=== PATIENT | male | born 1955 | race Hispanic/Latino ===

== ENCOUNTER 2020-04-18 20:00 | Inpatient (IN) | payer OTHER ==
[~2020-04-18] VITALS: Ht 175.3 cm; Wt 146.4 kg
[2020-04-18 20:41] LABS: INR 1.5 (0.85-1.15); PARTIAL THROMBOPLASTIN TIME 32.6 SEC (26.3-35.5); PROTHROMBIN TIME 15.9 SEC (9.6-11.6)
[2020-04-18] MEDS ORDERED: DEXAMETHASONE SOD PHOSPHATE 10MG/ML 1ML VIAL ONE (20:41)
[2020-04-18] MEDS ORDERED: AZITHROMYCIN 500MG+NS 250ML 250 ML IV ONE (20:41)
[2020-04-18] MEDS ORDERED: CEFTRIAXONE SODIUM 1 GM ONE (20:42)
[2020-04-18 20:50] LABS: CREATININE 1.6 mg/dL (0.5-1.5); POTASSIUM 4.6 mmol/L (3.5-5.1)
[2020-04-18 20:54] LABS: ABG BASE EXCESS -8.9 mmol/L (-2.0-3.0); ABG HCO3 19.3 mmol/L (21.0-28.0); ABG OXYGEN SATURATION 95.2 % (95.0-99.0); ABG PCO2 50 mmHg (35-48)
[2020-04-18 21:03] LABS: ALBUMIN 2.3 g/dL (3.5-5.0); BILIRUBIN,TOTAL 0.6 mg/dL (0.2-1.0); TOTAL PROTEIN, SERUM 8.6 g/dL (6.0-8.3); TROPONIN I 0.14 ng/mL (0.00-0.06)
[2020-04-18 21:08] LABS: APPEARANCE,URINE Cloudy (CLEAR); BILIRUBIN,URINE Negative (NEGATIVE); COLOR,URINE Dark Yellow (YELLOW); GLUCOSE, URINE (UA) Negative (NEGATIVE); KETONES,URINE Negative (NEGATIVE); LEUKOCYTE ESTERASE ,URINE Trace (NEGATIVE); NITRATE,URINE Negative (NEGATIVE); OCCULT BLOOD,URINE Trace (NEGATIVE); PROTEIN,URINE 300 mg/dL (NEGATIVE)
[2020-04-18 21:11] LABS: CRP QUANTITATIVE 307.1 mg/L (0.00-9.0); MAGNESIUM 2.3 mg/dL (1.80-2.40)
[2020-04-18 21:13] LABS: BASOPHILS % (AUTO) 0.1 % (0.0-5.0); EOSINOPHILS % (AUTO) 0.1 % (0.0-8.0); HEMATOCRIT 42.3 % (42-54); LYMPHOCYTES % (AUTO) 7.6 % (21.0-51.0); MEAN CORPUSCULAR HEMOGLOBIN 30.5 pg (27.0-33.0); MEAN CORPUSCULAR HGB CONC 33.6 g/dL (32.0-36.0); MONOCYTES % (AUTO) 6.8 % (3.0-13.0); NEUTROPHILS % (AUTO) 73.3 % (40.0-77.0); NUCLEATED RED BLOOD CELLS 1.9 % (0.0-0.19); PLATELET COUNT (AUTO) 480 K/uL (130-400); RED BLOOD CELL COUNT(AUTO) 4.65 MIL/uL (4.50-6.20)
[2020-04-18] MEDS ORDERED: PROPOFOL 1000 MG/100 ML 100 ML IV ONE (21:19)
[2020-04-18] MEDS ORDERED: ENOXAPARIN SODIUM 30 MG/0.3 ML SQ ONE (21:25)
[2020-04-18] MEDS ORDERED: ENOXAPARIN SODIUM 120 MG/0.8ML SQ ONE (21:25)
[2020-04-18 21:34] LABS: RBC,URINE None Seen /HPF (0-1)
[2020-04-18 21:35] LABS: AMORPHOUS SEDIMENT,UR Few /LPF (None Seen); BACTERIA,URINE Few /HPF (None Seen); SQUAMOUS EPITHELIAL CELL,UR None Seen /HPF (0-2)
[2020-04-18] MEDS ORDERED: LACTULOSE 20 GM/30 ML UDCUP PO PRN (21:45)
[2020-04-18] MEDS ORDERED: ONDANSETRON HCL 4 MG/2 ML VIAL IV PRN (21:45)
[2020-04-18] MEDS: CEFTRIAXONE SODIUM 1 GM IV SCH (21:45)
[2020-04-18] MEDS ORDERED: SODIUM BICARB 8.4% IVP SCH (21:45)
[2020-04-18] MEDS: AZITHROMYCIN 500MG+NS 250ML 250 ML IV SCH (21:45)
[2020-04-18] MEDS ORDERED: SYRING IVP SCH (21:45)
[2020-04-18] MEDS ORDERED: SODIUM CHLORIDE 0.9% IVP SCH (21:45)
[2020-04-18] MEDS ORDERED: METHYLPREDNISOLONE SOD SUCC 40MG/ML 1ML IVP SCH (21:45)
[2020-04-18] MEDS ORDERED: ACETAMINOPHEN 325 MG TAB PO PRN ×2 (21:45)
[2020-04-18] MEDS: RENAL DOSE IV SCH (21:45)
[2020-04-18] MEDS ORDERED: PHARMACY COMMUNICATION MISC SCH (22:00)
[2020-04-18 22:21] LABS: CHOLESTEROL 199 mg/dL (<200); LDL DIRECT 106 mg/dL (0-99); TRIGLYCERIDES 187 mg/dL (30-200)
[2020-04-18 22:34] LABS: HDL CHOLESTEROL 54 mg/dL (29-71)
[2020-04-19] VITALS (63 sets, daily range): BP systolic 74–143; BP diastolic 28–72
[2020-04-19] MEDS ORDERED: SODIUM CHLORIDE 0.9% 0 ML IV ONE (00:15)
[2020-04-19] MEDS ORDERED: FENTANYL 2500MCG+NS 250ML 250 ML IV ONE (00:16)
[2020-04-19 00:37] LABS: ABG BASE EXCESS 0.4 mmol/L (-2.0-3.0); ABG HCO3 25.4 mmol/L (21.0-28.0); ABG PCO2 43 mmHg (35-48)
[2020-04-19] MEDS ORDERED: NOREPINEPHRINE 4MG/NS 250ML 250 ML IV ONE ×2 (02:16→12:07)
[2020-04-19] MEDS: RENAL DOSE IV SCH ×4 (03:45→21:45)
[2020-04-19] MEDS ORDERED: METHYLPREDNISOLONE SOD SUCC 40MG/ML 1ML ONE (04:42)
[2020-04-19 04:48] LABS: BILIRUBIN,TOTAL 0.4 mg/dL (0.2-1.0); CREATININE 1.7 mg/dL (0.5-1.5); POTASSIUM 4.9 mmol/L (3.5-5.1); TOTAL PROTEIN, SERUM 7.6 g/dL (6.0-8.3)
[2020-04-19 05:05] LABS: CRP QUANTITATIVE 243.1 mg/L (0.00-9.0)
[2020-04-19 06:00] LABS: BASOPHILS % (AUTO) 0.2 % (0.0-5.0); HEMATOCRIT 38.8 % (42-54); LYMPHOCYTES % (AUTO) 4.9 % (21.0-51.0); MEAN CORPUSCULAR VOLUME 90.9 fL (79-99); MONOCYTES % (AUTO) 3.9 % (3.0-13.0); NEUTROPHILS % (AUTO) 79.3 % (40.0-77.0); NUCLEATED RED BLOOD CELLS 1.6 % (0.0-0.19); PLATELET COUNT (AUTO) 415 K/uL (130-400); RED BLOOD CELL COUNT(AUTO) 4.27 MIL/uL (4.50-6.20); RED CELL DISTRIBUTION WIDTH 14.9 % (11.0-15.5); WHITE BLOOD COUNT (AUTO) 17.9 K/uL (4.8-10.8)
[2020-04-19] MEDS: INSULIN HUMULIN R 100 UNIT/ML 3ML SQ SCH ×4 (06:00→18:00)
[2020-04-19] MEDS ORDERED: REMDESIVIR (EUA) 520 200 MG in SODIUM CHLORIDE 0.9% 250 ML IV SCH (07:00)
[2020-04-19] MEDS ORDERED: COMPOUND IV REFRIGERATED 1 EACH IVSOLN MISC PRN (07:00)
[2020-04-19] MEDS ORDERED: ENOXAPARIN SODIUM 40 MG/0.4 ML SYRINGE SQ SCH ×2 (09:00)
[2020-04-19] MEDS ORDERED: ENOXAPARIN SODIUM 60 MG/0.6 ML SQ SCH ×2 (09:00→21:00)
[2020-04-19] MEDS ORDERED: FUROSEMIDE 10 MG/ML 4ML VIAL IV SCH (09:00)
[2020-04-19] MEDS ORDERED: ALLO300T2 PO (11:46)
[2020-04-19] MEDS ORDERED: BUPR200T34 PO (11:46)
[2020-04-19] MEDS ORDERED: MYCO500V2 IV (11:46)
[2020-04-19] MEDS ORDERED: LOSA50TA64 PO (11:46)
[2020-04-19] MEDS ORDERED: HYDR-4068 PO (11:46)
[2020-04-19] MEDS ORDERED: METO100T14 PO (11:46)
[2020-04-19] MEDS ORDERED: FURO40SO4 PO (11:46)
[2020-04-19] MEDS ORDERED: HYDR200T4 PO (11:46)
[2020-04-19] MEDS: PROPOFOL 1000 MG/100 ML 100 ML IV SCH ×2 (12:46→19:45)
[2020-04-19] MEDS: FUROSEMIDE 10 MG/ML 2ML VIAL IVP SCH ×2 (14:00→22:34)
[2020-04-19] MEDS ORDERED: NOREPINEPHRINE 4MG/NS 250ML 250 ML IV SCH (14:15)
[2020-04-19] MEDS: MIDAZOLAM 100MG-0.9% NS 100ML 100 ML IV SCH (16:43)
[2020-04-19] MEDS: ENOXAPARIN SODIUM 100 MG/1 ML SQ SCH (21:00)
[2020-04-19] MEDS ORDERED: ENOXAPARIN SODIUM 100 MG/1 ML SQ SCH (21:00)
[2020-04-19] MEDS: AZITHROMYCIN 500MG+NS 250ML 250 ML IV SCH (22:34)
[2020-04-19] MEDS: CEFTRIAXONE SODIUM 1 GM IV SCH (22:34)
[2020-04-19] MEDS: DEXAMETHASONE SOD PHOSPHATE 4 MG/ML 1ML VIAL IVP SCH (22:34)
[2020-04-20] VITALS (50 sets, daily range): BP systolic 92–128; BP diastolic 24–69
[2020-04-20] MEDS: MIDAZOLAM 100MG-0.9% NS 100ML 100 ML IV SCH ×2 (02:16→14:04)
[2020-04-20] MEDS: PROPOFOL 1000 MG/100 ML 100 ML IV SCH ×3 (02:16→13:08)
[2020-04-20 03:27] LABS: ABG HCO3 22.2 mmol/L (21.0-28.0); ABG OXYGEN SATURATION 96.7 % (95.0-99.0); ABG PCO2 44 mmHg (35-48)
[2020-04-20 04:13] LABS: BASOPHILS % (AUTO) 0.1 % (0.0-5.0); HEMATOCRIT 41.1 % (42-54); LYMPHOCYTES % (AUTO) 4.1 % (21.0-51.0); MEAN CORPUSCULAR HEMOGLOBIN 29.8 pg (27.0-33.0); MEAN CORPUSCULAR HGB CONC 32.1 g/dL (32.0-36.0); MEAN CORPUSCULAR VOLUME 92.8 fL (79-99); MONOCYTES % (AUTO) 7.4 % (3.0-13.0); NEUTROPHILS % (AUTO) 77.1 % (40.0-77.0); NUCLEATED RED BLOOD CELLS 2.2 % (0.0-0.19); PLATELET COUNT (AUTO) 465 K/uL (130-400); RED BLOOD CELL COUNT(AUTO) 4.43 MIL/uL (4.50-6.20); RED CELL DISTRIBUTION WIDTH 15.1 % (11.0-15.5); WHITE BLOOD COUNT (AUTO) 27.1 K/uL (4.8-10.8)
[2020-04-20 04:56] LABS: BILIRUBIN,TOTAL 0.5 mg/dL (0.2-1.0); CREATININE 1.7 mg/dL (0.5-1.5); CRP QUANTITATIVE 136.7 mg/L (0.00-9.0); POTASSIUM 4.7 mmol/L (3.5-5.1); TOTAL PROTEIN, SERUM 7.6 g/dL (6.0-8.3)
[2020-04-20] MEDS: FUROSEMIDE 10 MG/ML 2ML VIAL IVP SCH ×3 (06:00→20:21)
[2020-04-20] MEDS: INSULIN HUMULIN R 100 UNIT/ML 3ML SQ SCH ×4 (06:00→15:21)
[2020-04-20] MEDS: PHARMACY COMMUNICATION MISC SCH (06:00)
[2020-04-20] MEDS: LOSARTAN 50 MG TABLET PO SCH ×2 (07:44→20:37)
[2020-04-20] MEDS: METOPROLOL TARTRATE 50 MG TAB PO SCH (07:45)
[2020-04-20] MEDS: RENAL DOSE IV SCH ×4 (07:46→20:37)
[2020-04-20] MEDS: PANTOPRAZOLE 40 MG/VIAL IVP SCH (08:46)
[2020-04-20] MEDS: ENOXAPARIN SODIUM 100 MG/1 ML SQ SCH ×2 (08:47→20:21)
[2020-04-20] MEDS: REMDESIVIR (EUA) 520 100 MG in SODIUM CHLORIDE 0.9% 250 ML IV SCH (08:47)
[2020-04-20] MEDS: DEXAMETHASONE SOD PHOSPHATE 4 MG/ML 1ML VIAL IVP SCH ×2 (08:53→20:42)
[2020-04-20] MEDS ORDERED: FUROSEMIDE 10 MG/ML 4ML VIAL IVP SCH (09:45)
[2020-04-20] MEDS: FENTANYL 2500MCG+NS 250ML 250 ML IV SCH (15:57)
[2020-04-20] MEDS: CEFTRIAXONE SODIUM 1 GM IV SCH (20:21)
[2020-04-20] MEDS: AZITHROMYCIN 500MG+NS 250ML 250 ML IV SCH (20:21)
[2020-04-20] MEDS ORDERED: DEXAMETHASONE SOD PHOSPHATE 4 MG/ML 1ML VIAL ONE ×2 (20:39→20:43)
[2020-04-21] VITALS (49 sets, daily range): BP systolic 98–131; BP diastolic 37–52
[2020-04-21] MEDS: RENAL DOSE IV SCH ×4 (03:45→21:31)
[2020-04-21 04:23] LABS: ABG BASE EXCESS -2.2 mmol/L (-2.0-3.0); ABG HCO3 23.3 mmol/L (21.0-28.0); ABG OXYGEN SATURATION 96.8 % (95.0-99.0); ABG PCO2 43 mmHg (35-48)
[2020-04-21 04:44] LABS: BASOPHILS % (AUTO) 0.2 % (0.0-5.0); HEMATOCRIT 41.7 % (42-54); LYMPHOCYTES % (AUTO) 2.7 % (21.0-51.0); MEAN CORPUSCULAR HEMOGLOBIN 29.7 pg (27.0-33.0); MEAN CORPUSCULAR HGB CONC 31.4 g/dL (32.0-36.0); MEAN CORPUSCULAR VOLUME 94.6 fL (79-99); MONOCYTES % (AUTO) 7.1 % (3.0-13.0); NEUTROPHILS % (AUTO) 78.7 % (40.0-77.0); NUCLEATED RED BLOOD CELLS 2.4 % (0.0-0.19); PLATELET COUNT (AUTO) 440 K/uL (130-400); RED BLOOD CELL COUNT(AUTO) 4.41 MIL/uL (4.50-6.20); RED CELL DISTRIBUTION WIDTH 15.4 % (11.0-15.5)
[2020-04-21] MEDS: DEXAMETHASONE SOD PHOSPHATE 4 MG/ML 1ML VIAL IVP SCH ×3 (04:58→21:30)
[2020-04-21] MEDS: FUROSEMIDE 10 MG/ML 2ML VIAL IVP SCH ×3 (04:59→21:30)
[2020-04-21 05:00] LABS: ALBUMIN 2.2 g/dL (3.5-5.0); BILIRUBIN,TOTAL 0.5 mg/dL (0.2-1.0); CREATININE 1.9 mg/dL (0.5-1.5); CRP QUANTITATIVE 64.2 mg/L (0.00-9.0); POTASSIUM 4.3 mmol/L (3.5-5.1); TOTAL PROTEIN, SERUM 7.2 g/dL (6.0-8.3)
[2020-04-21] MEDS: INSULIN HUMULIN R 100 UNIT/ML 3ML SQ SCH ×4 (05:53→16:26)
[2020-04-21] MEDS: PROPOFOL 1000 MG/100 ML 100 ML IV SCH ×2 (05:54→12:32)
[2020-04-21] MEDS: PHARMACY COMMUNICATION MISC SCH (06:00)
[2020-04-21] MEDS: PANTOPRAZOLE 40 MG/VIAL IVP SCH (08:37)
[2020-04-21] MEDS: LOSARTAN 50 MG TABLET PO SCH ×2 (08:38→21:00)
[2020-04-21] MEDS: REMDESIVIR (EUA) 520 100 MG in SODIUM CHLORIDE 0.9% 250 ML IV SCH (08:38)
[2020-04-21] MEDS: ENOXAPARIN SODIUM 100 MG/1 ML SQ SCH ×2 (08:38→21:29)
[2020-04-21] MEDS: METOPROLOL TARTRATE 50 MG TAB PO SCH (08:39)
[2020-04-21] MEDS: MIDAZOLAM 100MG-0.9% NS 100ML 100 ML IV SCH (12:32)
[2020-04-21] MEDS: CEFTRIAXONE SODIUM 1 GM IV SCH (21:29)
[2020-04-21] MEDS: AZITHROMYCIN 500MG+NS 250ML 250 ML IV SCH (21:30)
[2020-04-22] VITALS (60 sets, daily range): BP systolic 91–154; BP diastolic 34–63
[2020-04-22] MEDS: INSULIN HUMULIN R 100 UNIT/ML 3ML SQ SCH ×4 (01:19→17:29)
[2020-04-22] MEDS: RENAL DOSE IV SCH ×4 (02:01→20:49)
[2020-04-22 03:49] LABS: ABG BASE EXCESS 0.6 mmol/L (-2.0-3.0); ABG HCO3 24.7 mmol/L (21.0-28.0); ABG OXYGEN SATURATION 93.5 % (95.0-99.0); ABG PCO2 38 mmHg (35-48)
[2020-04-22] MEDS: MIDAZOLAM 100MG-0.9% NS 100ML 100 ML IV SCH (04:00)
[2020-04-22] MEDS: FENTANYL 2500MCG+NS 250ML 250 ML IV SCH (04:01)
[2020-04-22] MEDS: PROPOFOL 1000 MG/100 ML 100 ML IV SCH ×2 (04:01→09:29)
[2020-04-22 04:38] LABS: BASOPHILS % (AUTO) 0.8 % (0.0-5.0); HEMATOCRIT 39.4 % (42-54); LYMPHOCYTES % (AUTO) 2.7 % (21.0-51.0); MEAN CORPUSCULAR HEMOGLOBIN 29.5 pg (27.0-33.0); MEAN CORPUSCULAR HGB CONC 31.5 g/dL (32.0-36.0); MEAN CORPUSCULAR VOLUME 93.6 fL (79-99); MONOCYTES % (AUTO) 6.2 % (3.0-13.0); NEUTROPHILS % (AUTO) 80.5 % (40.0-77.0); NUCLEATED RED BLOOD CELLS 1.4 % (0.0-0.19); PLATELET COUNT (AUTO) 376 K/uL (130-400); RED BLOOD CELL COUNT(AUTO) 4.21 MIL/uL (4.50-6.20); WHITE BLOOD COUNT (AUTO) 23.2 K/uL (4.8-10.8)
[2020-04-22 05:02] LABS: ALBUMIN 2.1 g/dL (3.5-5.0); BILIRUBIN,TOTAL 0.5 mg/dL (0.2-1.0); CREATININE 1.9 mg/dL (0.5-1.5); CRP QUANTITATIVE 30.3 mg/L (0.00-9.0); POTASSIUM 4.1 mmol/L (3.5-5.1); TOTAL PROTEIN, SERUM 6.5 g/dL (6.0-8.3)
[2020-04-22] MEDS: DEXAMETHASONE SOD PHOSPHATE 4 MG/ML 1ML VIAL IVP SCH ×3 (05:04→20:49)
[2020-04-22] MEDS: FUROSEMIDE 10 MG/ML 2ML VIAL IVP SCH (05:04)
[2020-04-22] MEDS: PHARMACY COMMUNICATION MISC SCH (06:00)
[2020-04-22] MEDS: PANTOPRAZOLE 40 MG/VIAL IVP SCH (08:47)
[2020-04-22] MEDS: LOSARTAN 50 MG TABLET PO SCH ×2 (08:47→20:49)
[2020-04-22] MEDS: METOPROLOL TARTRATE 50 MG TAB PO SCH (08:47)
[2020-04-22] MEDS: REMDESIVIR (EUA) 520 100 MG in SODIUM CHLORIDE 0.9% 250 ML IV SCH (08:47)
[2020-04-22] MEDS: ENOXAPARIN SODIUM 100 MG/1 ML SQ SCH ×2 (08:48→20:48)
[2020-04-22] MEDS: AZITHROMYCIN 500MG+NS 250ML 250 ML IV SCH (20:48)
[2020-04-22] MEDS: CEFTRIAXONE SODIUM 1 GM IV SCH (20:49)
[2020-04-23] VITALS (66 sets, daily range): BP systolic 112–172; BP diastolic 22–82
[2020-04-23] MEDS: RENAL DOSE IV SCH ×4 (03:45→20:38)
[2020-04-23 04:22] LABS: ABG HCO3 23.2 mmol/L (21.0-28.0); ABG OXYGEN SATURATION 93.3 % (95.0-99.0); ABG PCO2 37 mmHg (35-48)
[2020-04-23 04:49] LABS: BASOPHILS % (AUTO) 0.5 % (0.0-5.0); HEMATOCRIT 39.1 % (42-54); LYMPHOCYTES % (AUTO) 2.1 % (21.0-51.0); MEAN CORPUSCULAR HEMOGLOBIN 30.1 pg (27.0-33.0); MEAN CORPUSCULAR HGB CONC 31.7 g/dL (32.0-36.0); MEAN CORPUSCULAR VOLUME 94.9 fL (79-99); MONOCYTES % (AUTO) 5.3 % (3.0-13.0); NEUTROPHILS % (AUTO) 83.9 % (40.0-77.0); NUCLEATED RED BLOOD CELLS 0.9 % (0.0-0.19); PLATELET COUNT (AUTO) 291 K/uL (130-400); RED BLOOD CELL COUNT(AUTO) 4.12 MIL/uL (4.50-6.20); WHITE BLOOD COUNT (AUTO) 19.5 K/uL (4.8-10.8)
[2020-04-23 05:02] LABS: ALBUMIN 2.1 g/dL (3.5-5.0); BILIRUBIN,DIRECT 0.1 mg/dL (0.0-0.3); BILIRUBIN,TOTAL 0.4 mg/dL (0.2-1.0); CREATININE 1.8 mg/dL (0.5-1.5); CRP QUANTITATIVE 21.2 mg/L (0.00-9.0); MAGNESIUM 2.6 mg/dL (1.80-2.40); PHOSPHORUS 4.6 mg/dL (2.5-4.9); POTASSIUM 4.3 mmol/L (3.5-5.1); TOTAL PROTEIN, SERUM 6.4 g/dL (6.0-8.3)
[2020-04-23] MEDS: PHARMACY COMMUNICATION MISC SCH (06:00)
[2020-04-23] MEDS: INSULIN HUMULIN R 100 UNIT/ML 3ML SQ SCH ×4 (06:52→18:18)
[2020-04-23] MEDS: REMDESIVIR (EUA) 520 100 MG in SODIUM CHLORIDE 0.9% 250 ML IV SCH (08:34)
[2020-04-23] MEDS: PANTOPRAZOLE 40 MG/VIAL IVP SCH (08:35)
[2020-04-23] MEDS: METOPROLOL TARTRATE 50 MG TAB PO SCH (08:54)
[2020-04-23] MEDS: ENOXAPARIN SODIUM 100 MG/1 ML SQ SCH (08:54)
[2020-04-23] MEDS: DEXMEDETOMIDINE HCL 400 MCG in SODIUM CHLORIDE 0.9% 100 ML IV SCH ×2 (09:38→16:36)
[2020-04-23] MEDS: DEXAMETHASONE SOD PHOSPHATE 4 MG/ML 1ML VIAL IVP SCH (11:00)
[2020-04-23] MEDS: LOSARTAN 50 MG TABLET PO SCH ×2 (11:00→20:37)
[2020-04-23] MEDS: DEXTROSE 5%-WATER 1,000 ML IV SCH (11:00)
[2020-04-23 14:13] LABS: BASOPHILS % (AUTO) 0.4 % (0.0-5.0); HEMATOCRIT 38.6 % (42-54); LYMPHOCYTES % (AUTO) 2.1 % (21.0-51.0); MEAN CORPUSCULAR HEMOGLOBIN 29.7 pg (27.0-33.0); MEAN CORPUSCULAR HGB CONC 31.6 g/dL (32.0-36.0); MEAN CORPUSCULAR VOLUME 93.9 fL (79-99); MONOCYTES % (AUTO) 6.4 % (3.0-13.0); NEUTROPHILS % (AUTO) 85.3 % (40.0-77.0); NUCLEATED RED BLOOD CELLS 0.6 % (0.0-0.19); PLATELET COUNT (AUTO) 256 K/uL (130-400); RED BLOOD CELL COUNT(AUTO) 4.11 MIL/uL (4.50-6.20); RED CELL DISTRIBUTION WIDTH 15.6 % (11.0-15.5); WHITE BLOOD COUNT (AUTO) 23.4 K/uL (4.8-10.8)
[2020-04-23 14:25] LABS: CREATININE 1.5 mg/dL (0.5-1.5); POTASSIUM 4.3 mmol/L (3.5-5.1)
[2020-04-23] MEDS ORDERED: PROTAMINE SULFATE 10 MG/ML 5 ML VIAL IVP SCH (15:24)
[2020-04-23 16:00] LABS: INR 1.22 (0.85-1.15); PARTIAL THROMBOPLASTIN TIME 26.8 SEC (26.3-35.5); PROTHROMBIN TIME 13.1 SEC (9.6-11.6)
[2020-04-23] MEDS ORDERED: PROPOFOL 1000 MG/100 ML IV PRN (17:00)
[2020-04-23 17:35] LABS: CREATININE 1.4 mg/dL (0.5-1.5); POTASSIUM 4.5 mmol/L (3.5-5.1)
[2020-04-23] MEDS: CEFTRIAXONE SODIUM 1 GM IV SCH (20:38)
[2020-04-23] MEDS: AZITHROMYCIN 500MG+NS 250ML 250 ML IV SCH (20:38)
[2020-04-24] VITALS (69 sets, daily range): BP systolic 99–193; BP diastolic 26–101
[2020-04-24] MEDS: RENAL DOSE IV SCH ×4 (03:45→21:09)
[2020-04-24 04:43] LABS: BASOPHILS % (AUTO) 0.2 % (0.0-5.0); HEMATOCRIT 32.2 % (42-54); LYMPHOCYTES % (AUTO) 2.1 % (21.0-51.0); MEAN CORPUSCULAR HEMOGLOBIN 29.7 pg (27.0-33.0); MEAN CORPUSCULAR HGB CONC 31.4 g/dL (32.0-36.0); MEAN CORPUSCULAR VOLUME 94.7 fL (79-99); MONOCYTES % (AUTO) 5.6 % (3.0-13.0); NEUTROPHILS % (AUTO) 86.8 % (40.0-77.0); NUCLEATED RED BLOOD CELLS 0.8 % (0.0-0.19); PLATELET COUNT (AUTO) 228 K/uL (130-400); RED CELL DISTRIBUTION WIDTH 15.3 % (11.0-15.5); WHITE BLOOD COUNT (AUTO) 22.3 K/uL (4.8-10.8)
[2020-04-24 04:55] LABS: INR 1.19 (0.85-1.15); PARTIAL THROMBOPLASTIN TIME 27.3 SEC (26.3-35.5); PROTHROMBIN TIME 12.8 SEC (9.6-11.6)
[2020-04-24 05:30] LABS: ALBUMIN 1.8 g/dL (3.5-5.0); BILIRUBIN,TOTAL 0.3 mg/dL (0.2-1.0); CREATININE 1.3 mg/dL (0.5-1.5); CRP QUANTITATIVE 13.7 mg/L (0.00-9.0); POTASSIUM 4.2 mmol/L (3.5-5.1); TOTAL PROTEIN, SERUM 5.3 g/dL (6.0-8.3)
[2020-04-24] MEDS: DEXTROSE 5%-WATER 1,000 ML IV SCH (05:45)
[2020-04-24] MEDS: PHARMACY COMMUNICATION MISC SCH (06:00)
[2020-04-24] MEDS: INSULIN HUMULIN R 100 UNIT/ML 3ML SQ SCH ×4 (07:03→18:35)
[2020-04-24] MEDS: METOPROLOL TARTRATE 50 MG TAB PO SCH (09:00)
[2020-04-24] MEDS: PANTOPRAZOLE 40 MG/VIAL IVP SCH (10:09)
[2020-04-24] MEDS: DEXAMETHASONE SOD PHOSPHATE 4 MG/ML 1ML VIAL IVP SCH (10:09)
[2020-04-24] MEDS: LOSARTAN 50 MG TABLET PO SCH ×2 (10:09→21:00)
[2020-04-24] MEDS ORDERED: POLYETHYLENE GLYCOL 3350 17 GM POWD.PACK PO PRN (11:15)
[2020-04-24] MEDS: DOCUSATE NA 100MG/10ML UDCUP GT SCH ×2 (14:00→21:08)
[2020-04-25] VITALS (68 sets, daily range): BP systolic 82–211; BP diastolic 30–125
[2020-04-25] MEDS: RENAL DOSE IV SCH ×4 (03:45→21:45)
[2020-04-25 05:02] LABS: ABG BASE EXCESS -4.2 mmol/L (-2.0-3.0); ABG HCO3 18.2 mmol/L (21.0-28.0); ABG OXYGEN SATURATION 94.8 % (95.0-99.0); ABG PCO2 27 mmHg (35-48)
[2020-04-25] MEDS: INSULIN HUMULIN R 100 UNIT/ML 3ML SQ SCH ×4 (06:17→18:00)
[2020-04-25] MEDS: DOCUSATE NA 100MG/10ML UDCUP GT SCH ×3 (06:27→22:00)
[2020-04-25 08:51] LABS: BASOPHILS % (AUTO) 0.3 % (0.0-5.0); HEMATOCRIT 32.9 % (42-54); LYMPHOCYTES % (AUTO) 1.4 % (21.0-51.0); MEAN CORPUSCULAR HGB CONC 32.5 g/dL (32.0-36.0); MEAN CORPUSCULAR VOLUME 92.2 fL (79-99); MONOCYTES % (AUTO) 5.3 % (3.0-13.0); NUCLEATED RED BLOOD CELLS 0.4 % (0.0-0.19); PLATELET COUNT (AUTO) 240 K/uL (130-400); RED BLOOD CELL COUNT(AUTO) 3.57 MIL/uL (4.50-6.20); RED CELL DISTRIBUTION WIDTH 15.8 % (11.0-15.5); WHITE BLOOD COUNT (AUTO) 29.7 K/uL (4.8-10.8)
[2020-04-25] MEDS: SENNOSIDES 8.6 MG TABLET GT SCH (09:00)
[2020-04-25] MEDS: METOPROLOL TARTRATE 50 MG TAB PO SCH (09:00)
[2020-04-25] MEDS: LOSARTAN 50 MG TABLET PO SCH ×2 (09:00→20:33)
[2020-04-25] MEDS: LANSOPRAZOLE 15 MG SOLU TAB GT SCH (09:00)
[2020-04-25 09:07] LABS: CREATININE 1.2 mg/dL (0.5-1.5); POTASSIUM 4.5 mmol/L (3.5-5.1)
[2020-04-25 09:10] LABS: CRP QUANTITATIVE 87.7 mg/L (0.00-9.0); MAGNESIUM 2.6 mg/dL (1.80-2.40); PHOSPHORUS 4.5 mg/dL (2.5-4.9)
[2020-04-25] MEDS: DEXAMETHASONE SOD PHOSPHATE 4 MG/ML 1ML VIAL IVP SCH (11:52)
[2020-04-25] MEDS ORDERED: MORPHINE SULFATE 2 MG/ML 1ML SYG IVP SCH (16:45)
[2020-04-25] MEDS: POLYETHYLENE GLYCOL 3350 17 GM POWD.PACK PO SCH (17:43)
[2020-04-25] MEDS: ENOXAPARIN SODIUM 40 MG/0.4 ML SYRINGE SQ SCH (20:33)
[2020-04-25] MEDS: ERYTHROMYCIN BASE 250 MG TABLET PO SCH (22:06)
[2020-04-26] VITALS (64 sets, daily range): BP systolic 94–179; BP diastolic 32–152
[2020-04-26] MEDS: RENAL DOSE IV SCH ×4 (03:45→22:53)
[2020-04-26 04:17] LABS: BASOPHILS % (AUTO) 0.4 % (0.0-5.0); MEAN CORPUSCULAR HEMOGLOBIN 29.7 pg (27.0-33.0); MEAN CORPUSCULAR HGB CONC 31.9 g/dL (32.0-36.0); MEAN CORPUSCULAR VOLUME 93.3 fL (79-99); MONOCYTES % (AUTO) 5.5 % (3.0-13.0); NEUTROPHILS % (AUTO) 89.4 % (40.0-77.0); NUCLEATED RED BLOOD CELLS 0.1 % (0.0-0.19); PLATELET COUNT (AUTO) 269 K/uL (130-400); RED BLOOD CELL COUNT(AUTO) 3.43 MIL/uL (4.50-6.20); RED CELL DISTRIBUTION WIDTH 16.1 % (11.0-15.5)
[2020-04-26 04:19] LABS: WHITE BLOOD COUNT (AUTO) 35.3 K/uL (4.8-10.8)
[2020-04-26 04:35] LABS: BILIRUBIN,TOTAL 0.6 mg/dL (0.2-1.0); CREATININE 1.1 mg/dL (0.5-1.5); CRP QUANTITATIVE 146.7 mg/L (0.00-9.0); POTASSIUM 4.7 mmol/L (3.5-5.1); TOTAL PROTEIN, SERUM 5.9 g/dL (6.0-8.3)
[2020-04-26 04:36] LABS: BAND NEUTROPHILS % (MANUAL) 4 % (0-2); LYMPHOCYTES % (MANUAL) 6 % (22-44); MONOCYTES % (MANUAL) 5 % (2-9); SEGMENTED NEUTROPHILS % 85 % (40-70)
[2020-04-26 04:37] LABS: MAN.DIFF COMMENT-IMPRESSION MANUAL DIFFERENTIAL; PLATELET MORPHOLOGY COMMENT ADEQUATE
[2020-04-26] MEDS: INSULIN HUMULIN R 100 UNIT/ML 3ML SQ SCH ×4 (06:00→17:16)
[2020-04-26] MEDS: DOCUSATE NA 100MG/10ML UDCUP GT SCH ×3 (06:00→22:52)
[2020-04-26] MEDS: ERYTHROMYCIN BASE 250 MG TABLET PO SCH (06:35)
[2020-04-26] MEDS: TRAMADOL HCL 50 MG TABLET PO PRN ×3 (06:45→22:53)
[2020-04-26] MEDS: POLYETHYLENE GLYCOL 3350 17 GM POWD.PACK PO SCH (09:00)
[2020-04-26] MEDS: ENOXAPARIN SODIUM 40 MG/0.4 ML SYRINGE SQ SCH ×2 (09:56→20:07)
[2020-04-26] MEDS: LANSOPRAZOLE 15 MG SOLU TAB GT SCH (09:57)
[2020-04-26] MEDS: DEXAMETHASONE SOD PHOSPHATE 4 MG/ML 1ML VIAL IVP SCH (09:57)
[2020-04-26] MEDS: METOPROLOL TARTRATE 50 MG TAB PO SCH (09:57)
[2020-04-26] MEDS: SENNOSIDES 8.6 MG TABLET GT SCH (09:57)
[2020-04-26] MEDS: LOSARTAN 50 MG TABLET PO SCH ×2 (09:57→20:04)
[2020-04-27] VITALS (11 sets, daily range): BP systolic 101–143; BP diastolic 34–82
[2020-04-27] MEDS: RENAL DOSE IV SCH (03:45)
[2020-04-27 04:00] LABS: BASOPHILS % (AUTO) 0.3 % (0.0-5.0); HEMATOCRIT 34.7 % (42-54); LYMPHOCYTES % (AUTO) 1.6 % (21.0-51.0); MEAN CORPUSCULAR HEMOGLOBIN 29.7 pg (27.0-33.0); MEAN CORPUSCULAR VOLUME 92.8 fL (79-99); MONOCYTES % (AUTO) 6.2 % (3.0-13.0); NEUTROPHILS % (AUTO) 88.3 % (40.0-77.0); NUCLEATED RED BLOOD CELLS 0.1 % (0.0-0.19); PLATELET COUNT (AUTO) 319 K/uL (130-400); RED BLOOD CELL COUNT(AUTO) 3.74 MIL/uL (4.50-6.20); RED CELL DISTRIBUTION WIDTH 16.2 % (11.0-15.5); WHITE BLOOD COUNT (AUTO) 28.5 K/uL (4.8-10.8)
[2020-04-27 04:18] LABS: ALBUMIN 2.2 g/dL (3.5-5.0); BILIRUBIN,TOTAL 0.5 mg/dL (0.2-1.0); CREATININE 1.1 mg/dL (0.5-1.5); CRP QUANTITATIVE 75.9 mg/L (0.00-9.0); TOTAL PROTEIN, SERUM 6.4 g/dL (6.0-8.3)
[2020-04-27] MEDS: INSULIN HUMULIN R 100 UNIT/ML 3ML SQ SCH ×5 (06:00→21:18)
[2020-04-27] MEDS: DOCUSATE NA 100MG/10ML UDCUP GT SCH (06:00)
[2020-04-27] MEDS: DEXAMETHASONE 4 MG TAB PO SCH (08:18)
[2020-04-27] MEDS: LOSARTAN 50 MG TABLET PO SCH (08:18)
[2020-04-27] MEDS: PANTOPRAZOLE SODIUM 40 MG TABLET.DR PO SCH (08:18)
[2020-04-27] MEDS: METOPROLOL TARTRATE 50 MG TAB PO SCH ×2 (08:18→21:21)
[2020-04-27] MEDS: ENOXAPARIN SODIUM 40 MG/0.4 ML SYRINGE SQ SCH ×2 (08:19→21:21)
[2020-04-27] MEDS: SENNOSIDES 8.6 MG TABLET GT SCH ×3 (08:19→08:25)
[2020-04-28] VITALS: BP 152/78
[2020-04-28] MEDS: TRAMADOL HCL 50 MG TABLET PO PRN (00:32)
[2020-04-28 03:32] VITALS: BP 118/54
[2020-04-28 05:08] LABS: BASOPHILS % (AUTO) 0.4 % (0.0-5.0); HEMATOCRIT 35.6 % (42-54); LYMPHOCYTES % (AUTO) 2.9 % (21.0-51.0); MEAN CORPUSCULAR HEMOGLOBIN 29.8 pg (27.0-33.0); MONOCYTES % (AUTO) 9.1 % (3.0-13.0); NEUTROPHILS % (AUTO) 83.9 % (40.0-77.0); NUCLEATED RED BLOOD CELLS 0.1 % (0.0-0.19); PLATELET COUNT (AUTO) 382 K/uL (130-400); RED BLOOD CELL COUNT(AUTO) 3.83 MIL/uL (4.50-6.20); RED CELL DISTRIBUTION WIDTH 16.4 % (11.0-15.5); WHITE BLOOD COUNT (AUTO) 25.2 K/uL (4.8-10.8)
[2020-04-28 05:31] LABS: CREATININE 1.1 mg/dL (0.5-1.5); POTASSIUM 4.5 mmol/L (3.5-5.1)
[2020-04-28] MEDS: INSULIN HUMULIN R 100 UNIT/ML 3ML SQ SCH ×3 (05:48→16:37)
[2020-04-28 08:00] VITALS: BP 134/70
[2020-04-28] MEDS: PANTOPRAZOLE SODIUM 40 MG TABLET.DR PO SCH (09:52)
[2020-04-28] MEDS: DEXAMETHASONE 4 MG TAB PO SCH (09:53)
[2020-04-28] MEDS: METOPROLOL TARTRATE 50 MG TAB PO SCH (09:53)
[2020-04-28] MEDS: ENOXAPARIN SODIUM 40 MG/0.4 ML SYRINGE SQ SCH (09:53)
[2020-04-28 12:00] VITALS: BP 115/63
[2020-04-28] MEDS ORDERED: CEFEPIME HCL 1 GM VIAL IVP SCH (12:45)
[2020-04-28 16:00] VITALS: BP 124/56
[2020-04-28 19:00] VITALS: BP 130/71
== END 2020-04-28 20:45 | DRG 207 ==
LOC: EDH 20:00 → EDHIP 21:31 → 2BH 04-19 08:24 → 2AH 04-27 18:03
PROVIDERS: ADMIT Family Medicine; ATTEND Family Medicine
PROC: 5A1955Z Respiratory Ventilation, Greater than 96 Consecutive Hours (ICD-10-PCS; principal; 2020-04-19)
PROC: 0BH17EZ Insertion of Endotracheal Airway into Trachea, Via Natural or Artificial Opening (ICD-10-PCS; 2020-04-19)
PROC: XW033E5 Introduction of Remdesivir Anti-infective into Peripheral Vein, Percutaneous Approach, New Technology Group 5 (ICD-10-PCS; 2020-04-19)
PROC: 02H633Z Insertion of Infusion Device into Right Atrium, Percutaneous Approach (ICD-10-PCS; 2020-04-23)
PROC: 5A09357 Assistance with Respiratory Ventilation, Less than 24 Consecutive Hours, Continuous Positive Airway Pressure (ICD-10-PCS; 2020-04-23)
PROC: 5A09357 Assistance with Respiratory Ventilation, Less than 24 Consecutive Hours, Continuous Positive Airway Pressure (ICD-10-PCS; 2020-04-25)
DX: U07.1 COVID-19 (principal); J96.01 Acute respiratory failure with hypoxia; J12.89 Other viral pneumonia; I50.23 Acute on chronic systolic (congestive) heart failure; N17.9 Acute kidney failure, unspecified; D84.9 Immunodeficiency, unspecified; Z68.41 Body mass index [BMI] 40.0-44.9, adult; E87.0 Hyperosmolality and hypernatremia; B96.89 Other specified bacterial agents as the cause of diseases classified elsewhere; E66.01 Morbid (severe) obesity due to excess calories; E78.00 Pure hypercholesterolemia, unspecified; E78.5 Hyperlipidemia, unspecified; F41.9 Anxiety disorder, unspecified; I50.9 Heart failure, unspecified; M10.9 Gout, unspecified; M32.14 Glomerular disease in systemic lupus erythematosus; N18.30 Chronic kidney disease, stage 3 unspecified; R04.0 Epistaxis; D64.9 Anemia, unspecified; Z74.01 Bed confinement status; Z82.49 Family history of ischemic heart disease and other diseases of the circulatory system; Z83.3 Family history of diabetes mellitus; Z79.899 Other long term (current) drug therapy
CPT/HCPCS: 31500; 36415; 36600; 71045; 80048; 80053; 80061; 80076; 81001; 82550; 82728; 82803; 82948; 83605; 83615; 83735; 83874; 83880; 84100; 84145; 84484; 85025; 85378; 85384; 85610; 85730; 86140; 86900; 86901; 87040; 87070; 87077; 87088; 87186; 87426; 87804; 92610; 93005; 94002; 94003; 97039; C1751; C1894; C9113; G0378; J0456; J0696; J1100; J1650; J1940; J2250; J2704; J2720; J2920; J3010; J3490; J7030; J7050; J7070; J8540